=== PATIENT | male | born 1985 | race Caucasian/White ===

== ENCOUNTER 2025-04-11 23:10 | Emergency (ER) | payer OTHER ==
[~2025-04-11] VITALS: Ht 162.6 cm; Wt 54.3 kg
[2025-04-11 23:26] VITALS: BP 135/96; PULSE 84; RESP 20; TEMP 97.6; O2SAT 97
[2025-04-18] MEDS ORDERED: AMOX500C2 PO (15:52)
[2025-04-18] MEDS ORDERED: CLIN150C PO (15:52)
== END 2025-04-12 01:32 | disposition left against medical advice (07) ==
LOC: ER 23:10
DX: M79.644 Pain in right finger(s) (principal); Z53.21 Procedure and treatment not carried out due to patient leaving prior to being seen by health care provider

== ENCOUNTER → 2025-04-18 14:59 | Emergency (ER) | payer OTHER ==
[~2025-04-18] VITALS: Ht 162.6 cm; Wt 54.5 kg
[~2025-04-18 14:59] MED LIST: AMOX500C2 PO; CLIN150C PO
[2025-04-18 15:38] VITALS: BP 146/93; PULSE 79; RESP 20; TEMP 98.8; O2SAT 97
--- NOTE | 2025-04-18 15:52 | ED.PDOC ---
Musculoskeletal HPI Comments This is a 39-year-old male who comes in with his right 2nd finger swollen. He states for about a month he has had a ring on it and he has been trying to take it off. Things slowly getting swollen his family was bugging him to remove it but he never did he went to the fire department today to have it removed. He comes here because of the pain and swelling. States he can still feel his finger he has not noticed any black skin anywhere on the finger.. Chief Complaint: Upper Extremity Time Seen by MD: 15:43 Reviewed Notes: Nurses Notes, Medications, Allergies Allergies: Coded Allergies: NO KNOWN ALLERGIES (Unverified , 04/11/25) Information Source: Patient Mode of Arrival: Ambulatory Past Medical History PAST MEDICAL HISTORY: Denies Social History Smoker: Non-Smoker Alcohol: Denies ETOH Use Drugs: Denies Drug Use Lives In: Home Musculoskeletal: reports: joint pain, joint swelling All Other Systems: Reviewed and Negative Physical Exam General Appearance: No Apparent Distress, Normal HEENT: Normal ENT Inspection, PERRL/EOMI, Pharynx Normal, TMs Normal Neck: Full Range of Motion, Non-Tender, Normal Inspection, Supple Respiratory: Lungs Clear, No Respiratory Distress, Normal Breath Sounds Cardiovascular: Regular Rate/Rhythm Breast Exam: Deferred Gastrointestinal: Non Tender, Soft Genitalia: Deferred Pelvic: Deferred Rectal: Deferred Extremities: Swelling, Tender (Right 2nd finger with a large amount of swelling warmth skin has a duration with open wound no drain it no eschar or black tissue noted distally) Neurologic: Alert, Normal Affect, Normal Mood Cerebellar Function: NOT DONE Reflexes: Normal Skin: Normal Color, Warm, Wounds Lymphatic: No Adenopathy Was a procedure done? Was a procedure done?: No Differential Diagnosis EXT Differential Diagnosis: Cellulitis, Compartment Syndrome, Fracture, Laceration X-Ray, Labs, Meds, VS Vital Signs Date Time Temp Pulse Resp B/P (MAP) Pulse Ox O2 Delivery O2 Flow Rate FiO2 04/18/25 15:00 98.2 80 151/108 98 98.2 X-Ray, Labs, Meds, VS Comment Patient seen and examined by me. I had tomorrow or come and see the patient with me as well. Patient was offered x-ray including IV antibiotics and admission for the severity of his finger. The patient refused he is refusing and wants to leave against medical advice x-ray IV antibiotics and admission. He is willing to take oral antibiotics and follow up with his regular doctor. An AMA signed. Patient is aware that this could lead to severe infection he could lose his extremity becomes. Sepsis and lead to . Patient will be sent home on clindamycin and amoxicillin. Time of 1ST Reevaluation: 15:48 Reevaluation 1ST: Unchanged Patient Education/Counseling: Diagnosis, Treatment, Prognosis, Need For Follow Up Family Education/Counseling: No Family Present Departure 1 Departure Time of Disposition: 15:48 Impression: Primary Impression: Cellulitis Disposition: 01 HOME / SELF CARE / HOMELESS Condition: Good Additional Instructions: Please finish all antibiotics as directed Do not skip any doses or you could in danger your finger from healing correctly If you notice any increased redness or drainage or leakage from the wound please come back to the ER e-Prescriptions Clindamycin Hcl (CLEOCIN) 150 Mg Cap 150 MG PO TID for 10 Days, #30 CAP Prov: SHANA REDP 04/18/25 Amoxicillin Trihydrate (Amoxicillin) 500 Mg Cap 1 CAP PO TID for 10 Days, #30 CAP Prov: SHANA RED 04/18/25 Discharged With: Self Critical Care Note Critical Care Time?: No Stability Stability form required: No SHANA RED Apr 18, 2025 15:52
== END | disposition home or self-care (01) ==
LOC: ER 14:59
DX: L03.011 Cellulitis of right finger (principal)